=== PATIENT | female | born 1975 | race African-American/Black ===

== ENCOUNTER 2017-09-09 11:19 | Emergency (ER) | payer OTHER ==
[2017-09-09 11:33] VITALS: BP 126/73
--- NOTE | 2017-09-09 11:46 | ED Physician Documentation ---
Low Back Pain - HISTORIAN Historian: patient - HPI Stated Complaint: Chronic Back Pain Chief Complaint: Lower Extremity Problem Additional Information: Has chronic back pain fpr three years. Comes and goes. No precipitating factor noted. This episod started on Monday, not doing any better. Usually takes some ice packs and flexoril to get the johnson to go away. Pain is in the lower right area with radiation into buttck and groin area. Sitting, trying to get up from sitting and laying on the right side make the pain worse. No previous ER visit for back noted. Onset: days ago (6) Duration: continues in ED Recent Injury: No Context: other (no specific precipitating factor) Severity: moderate Associated Symptoms: difficulty walking. denies: fever, chills, constipation, incontinence, nausea, vomiting, problems urinating, light-headedness, dizziness , numbness, weakness Worsened By:: movement to RT flexion, cough, deep breaths Relieved By: remaining still - ROS CONST: no problems - PAST HX Past History: other (left renal artery stenosis, OA, ) Other History: hypertension Surgeries/Procedures: none Immunizations: referred to PCP Allergies/Adverse Reactions: Allergies Allergy/AdvReac Type Severity Reaction Status Date / Time No Known Drug Allergies Allergy Unverified 01/31/13 11:09 Home Medications: Ambulatory Orders Medication Instructions Recorded Chlorthalidone [Chlorthalidone] 12.5 mg PO DAILY 09/09/17 Diltiazem HCl [Diltiazem ER] 360 mg PO DAILY 09/09/17 Hydrocodone/Acetaminophen [[place] 1 tab PO Q4H PRN 09/09/17 5-325 Tablet] NICOTINE 21mg [HABITROL 21mg] 1 patch TD DAILY 09/09/17 amLODIPine BESYLATE [Norvasc] 10 mg PO 0900 09/09/17 - SOCIAL HX Smoking History: non-smoker, quit greater than 1 year (2 months ago) Alcohol Use: none Drug Use: none - FAMILY HX Family History: no significant history - VITAL SIGNS Vital Signs: Vital Signs Temp Pulse Resp BP Pulse Ox 72 18 126/73 99 09/09/17 11:20 09/09/17 11:20 09/09/17 11:20 09/09/17 11:20 - REVIEWED ASSESSMENTS Nursing Assessment Reviewed: Yes Vitals Reviewed: Yes ED Results Lab/Radiology - Radiology Radiology Impressions: Examination: Plain film lumbar spine History: LOW BACK PAIN X 3 YEARS WITH RECENT FLARE UP X 3 DAYS (Hx) Findings: 3 views of the lumbar spine demonstrate normal height. No anterior compression. Few scattered osteophytes. No soft tissue abnormalities. Impression: No acute osseous process. No compression deformity. - Orders Orders: ED Orders Category Date Time Status LUMBAR SPINE XR 2 OR 3 VIEWS [L SPINE 2 OR 3 VIEWS] [ Exams 09/09/17 Ordered RAD] Stat URINE HCG Routine Lab 09/09/17 Ordered Ketorolac Tromethamine [Toradol] Med 09/09/17 12:07 Once 60 mg IM NOW ONE Low Back Pain/Injury - Physical Exam General Appearance: alert, moderate distress Neck: non-tender Resp/CVS: chest non-tender, breath sounds nml, heart sounds nml, no resp. distress, lungs clear Abdomen: non-tender Back: muscle spasm (mild right), other (tenderness to palpation over the lower rgiht lateral area. Decrease ROM in all planes secondary to pain. ). No: vertebral point-tendernes, CVA tenderness Straight Leg Raising: Negative Left, Negative Right Neuro/Psych: oriented x3, motor nml, sensation nml, reflexes nml, mood/affect nml Skin: warm/dry Discharge Clincal Impression: Low back pain Referrals: Shaina Valdes FNP [Primary Care Provider] - 2 Days Condition: Stable Disposition: 01 HOME, SELF-CARE Decision to Admit: NO Date of Decison to Admit: 09/09/17 Decision Time: 12:11
[2017-09-09] MEDS: KETOROLAC TROMETHAMINE 60 MG/2 ML VIAL IM ONE (12:25)
--- NOTE | 2017-09-09 20:04 | Diagnostic Imaging Report ---
JOSE ANGEL CHRISTIAN [facility] [id number] Pending Sale To [facility] [address] [address] Report Submission Date: September 09, 2017 12:35:36 PM CDT Patient Study Name: CY KRUSE Date: September 09, 2017 12:05:07 PM CDT Modality Type: DX Gender: F Description: SPINE : 71 Institution: [facility] Physician: JOSE ANGEL CHRISTIAN Examination: Plain film lumbar spine History: LOW BACK PAIN X 3 YEARS WITH RECENT FLARE UP X 3 DAYS (Hx) Findings: 3 views of the lumbar spine demonstrate normal height. No anterior compression. Few scattered osteophytes. No soft tissue abnormalities. Impression: No acute osseous process. No compression deformity. Electronically signed on September 09, 2017 12:35:36 PM CDT by: Johnny REYES
== END 2017-09-09 12:44 | disposition home or self-care (01) ==
LOC: ED 11:19
DX: M54.5 Low back pain (principal)
CPT/HCPCS: 72100; 81025; J1885; 96372